=== PATIENT | male | born 1950 | race Caucasian/White ===

== ENCOUNTER → 2018-02-05 | Outpatient (CLI) | payer OTHER | END | disposition home or self-care (01) | LOC: CFH 15:34 | PROVIDERS: ATTEND Internal Medicine Cardiovascular Disease | DX: I34.0 Nonrheumatic mitral (valve) insufficiency (principal); I35.0 Nonrheumatic aortic (valve) stenosis; I34.8 Other nonrheumatic mitral valve disorders; I51.7 Cardiomegaly; E78.5 Hyperlipidemia, unspecified | CPT/HCPCS: 93306 ==

== ENCOUNTER → 2018-07-17 | Outpatient (CLI) | payer OTHER | END | disposition home or self-care (01) | LOC: CFH 11:20 | PROVIDERS: ATTEND Internal Medicine Cardiovascular Disease | DX: R60.9 Edema, unspecified (principal); I50.9 Heart failure, unspecified; R06.02 Shortness of breath | CPT/HCPCS: 71046 ==

== ENCOUNTER → 2018-08-05 | Outpatient (CLI) | payer OTHER ==
[~2018-08-05] MED LIST: ALBU90AE INH; ATOR20TA37 PO; CALC-112 PO; CHOL2000 PO; FLUT1DIS IH; MULT-658 PO
== END | disposition home or self-care (01) ==
LOC: CVU 09:58
PROVIDERS: ATTEND Internal Medicine Cardiovascular Disease
DX: I08.0 Rheumatic disorders of both mitral and aortic valves (principal); J45.909 Unspecified asthma, uncomplicated
CPT/HCPCS: 0399T; 93306

== ENCOUNTER → 2018-08-26 | Outpatient (CLI) | payer OTHER ==
[~2018-08-26] MED LIST changes: +BUME1TAB21 PO; +LEVO500T47 PO; +LOSA25TA25 PO; +METO25TA91 PO; +POTA20TA6 PO; +RIVA20TA PO
[2018-08-26 15:55] LABS: ANION GAP 7 mmol/L (5-15); CALCIUM 9.1 mg/dL (8.5-10.1); CHLORIDE 108 mmol/L (98-107); CREATININE 1.19 mg/dL (0.7-1.3)
== END | disposition home or self-care (01) ==
LOC: CFH 15:06
PROVIDERS: ATTEND Internal Medicine Cardiovascular Disease
DX: I35.0 Nonrheumatic aortic (valve) stenosis (principal); I50.43 Acute on chronic combined systolic (congestive) and diastolic (congestive) heart failure
CPT/HCPCS: 36415; 80048

== ENCOUNTER → 2018-09-03 | Outpatient (CLI) | payer OTHER ==
[~2018-09-03] MED LIST changes: +OMNIPAQUE 350 MG/ML, 100ML BOTTLE ONE
== END | disposition home or self-care (01) ==
LOC: RAD 08:56
PROVIDERS: ATTEND Internal Medicine Cardiovascular Disease
DX: K57.30 Diverticulosis of large intestine without perforation or abscess without bleeding (principal); K76.0 Fatty (change of) liver, not elsewhere classified; I65.21 Occlusion and stenosis of right carotid artery; I70.90 Unspecified atherosclerosis; E04.1 Nontoxic single thyroid nodule; J98.11 Atelectasis; E78.5 Hyperlipidemia, unspecified; I42.9 Cardiomyopathy, unspecified; I35.0 Nonrheumatic aortic (valve) stenosis
CPT/HCPCS: 71275; 74174; 93880; Q9967

== ENCOUNTER 2018-09-09 06:01 | Inpatient (IN) | payer OTHER ==
[~2018-09-09] VITALS: Ht 177.8 cm; Wt 107.1 kg
[~2018-09-09 06:01] MED LIST changes: -OMNIPAQUE 350 MG/ML, 100ML BOTTLE ONE
[2018-09-09] MEDS ORDERED: SODIUM CHLORIDE 0.9% 1,000 ML IV ONE (06:17)
[2018-09-09 06:23] VITALS: BP 102/66
[2018-09-09] MEDS ORDERED: CHLORHEXIDINE 15 ML UDC MM PRN (06:30)
[2018-09-09] MEDS ORDERED: ONDANSETRON 2MG/ML, 2ML IVPush PRN ×2 (06:30→09:00)
[2018-09-09] MEDS ORDERED: ATOR20TA PO (07:00)
[2018-09-09] MEDS ORDERED: FLUT1DIS IH (07:00)
[2018-09-09 07:03] LABS: BASOPHILS # (AUTO) 0.03 x10^3/uL (0-0.1); BASOPHILS % (AUTO) 1 % (0-1); EOSINOPHILS # (AUTO) 0.15 x10^3/uL (0-0.4); EOSINOPHILS % (AUTO) 3 % (1-7); LYMPHOCYTES % (AUTO) 29 % (22-44); MD NO; MEAN CORPUSCULAR HEMOGLOBIN 31.5 pg (27.5-34.5); MEAN CORPUSCULAR HGB CONC 33.4 g/dL (33.2-36.2); MEAN CORPUSCULAR VOLUME 94.6 fL (81-97); MEAN PLATELET VOLUME 8.5 fL (7.4-10.4); MONOCYTES # (AUTO) 0.78 x10^3/uL (0.2-0.8); MONOCYTES % (AUTO) 13 % (2-9); NEUTROPHILS # (AUTO) 3.16 x10^3/uL (1.8-6.8); NEUTROPHILS % (AUTO) 54 % (42-75); PLATELET COUNT 256 x10^3/uL (130-400); RED BLOOD COUNT 5.09 x10^6/uL (4.38-5.82); RED CELL DISTRIBUTION WIDTH 13.1 % (9.4-14.8)
[2018-09-09] MEDS ORDERED: PROTAMINE SULFATE 10 MG/ML, 5ML ONE (07:04)
[2018-09-09] MEDS ORDERED: FENTANYL PF 250 MCG/5ML ONE (07:14)
[2018-09-09 07:18] LABS: ALBUMIN 3.9 g/dL (3.4-5.0); ANION GAP 5 mmol/L (5-15); CALCIUM 9.3 mg/dL (8.5-10.1); CHLORIDE 108 mmol/L (98-107)
[2018-09-09 07:24] LABS: ALANINE AMINOTRANSFERASE 42 U/L (12-78); ALKALINE PHOSPHATASE 82 U/L (45-117); BILIRUBIN,TOTAL 0.6 mg/dL (0.2-1.0); CREATININE 1.17 mg/dL (0.7-1.3); TOTAL PROTEIN 7.7 g/dL (6.4-8.2)
[2018-09-09 07:37] LABS: INTERNATIONAL NORMALIZED RATIO 1.02 (0.93-1.1); PROTHROMBIN TIME 10.7 Seconds (9.6-11.5)
[2018-09-09] MEDS ORDERED: HYDROcodone/APAP 5/325 TABLET PO PRN (09:00)
[2018-09-09] MEDS ORDERED: hydrALAzine 20 MG/ML, 1ML IVPush PRN (09:00)
[2018-09-09] MEDS ORDERED: ACETAMINOPHEN 325 MG TABLET PO PRN (09:00)
[2018-09-09] MEDS ORDERED: LABETALOL 5 MG/ML SYRINGE IVPush PRN (09:00)
[2018-09-09] MEDS: CHOLECALCIFEROL 1,000 UNIT TABLET PO SCH (09:25)
[2018-09-09] MEDS: BUMETANIDE 1 MG TABLET PO SCH (09:26)
[2018-09-09] MEDS: LOSARTAN 25MG TABLET PO SCH (09:27)
[2018-09-09] MEDS: POTASSIUM CHLORIDE 20 MEQ TAB.ER.PRT PO SCH (09:27)
[2018-09-09] MEDS: MULTIVITAMIN 1 TABLET PO SCH (09:28)
[2018-09-09 15:19] VITALS: BP 112/70
[2018-09-09] MEDS ORDERED: PROPOFOL 10 MG/ML, 20ML ONE (15:38)
[2018-09-09] MEDS ORDERED: ROCURONIUM 10MG/ML,5ML ONE (15:38)
[2018-09-09] MEDS ORDERED: SUCCINYLCHOLINE 20 MG/ML, 10ML ONE (15:38)
[2018-09-09] MEDS ORDERED: ONDANSETRON 2MG/ML, 2ML ONE (15:38)
[2018-09-09] MEDS ORDERED: CEFAZOLIN 1,000 MG ONE (15:38)
[2018-09-09] MEDS ORDERED: RIVAROXABAN 20 MG TABLET PO SCH ×2 (17:00→21:00)
[2018-09-09 19:48] VITALS: BP 99/66
[2018-09-09 20:27] VITALS: BP 114/76
[2018-09-09] MEDS ORDERED: ATORVASTATIN 20 MG TABLET PO SCH (21:00)
[2018-09-09] MEDS ORDERED: METOPROLOL SUCCINATE 25 MG TAB.ER.24H PO SCH (21:00)
[2018-09-10 02:42] VITALS: BP 135/78
[2018-09-10 05:08] LABS: BASOPHILS # (AUTO) 0.03 x10^3/uL (0-0.1); BASOPHILS % (AUTO) 0 % (0-1); EOSINOPHILS # (AUTO) 0.05 x10^3/uL (0-0.4); EOSINOPHILS % (AUTO) 1 % (1-7); LYMPHOCYTES # (AUTO) 1.21 x10^3/uL (1-3.4); LYMPHOCYTES % (AUTO) 15 % (22-44); MD NO; MEAN CORPUSCULAR HGB CONC 34.4 g/dL (33.2-36.2); MEAN PLATELET VOLUME 8.5 fL (7.4-10.4); MONOCYTES # (AUTO) 1.09 x10^3/uL (0.2-0.8); MONOCYTES % (AUTO) 14 % (2-9); NEUTROPHILS # (AUTO) 5.51 x10^3/uL (1.8-6.8); NEUTROPHILS % (AUTO) 70 % (42-75); PLATELET COUNT 182 x10^3/uL (130-400); RED BLOOD COUNT 4.05 x10^6/uL (4.38-5.82); RED CELL DISTRIBUTION WIDTH 13.2 % (9.4-14.8)
[2018-09-10 05:13] LABS: ANION GAP 6 mmol/L (5-15); CALCIUM 8.6 mg/dL (8.5-10.1); CHLORIDE 109 mmol/L (98-107)
[2018-09-10 05:14] LABS: CREATININE 0.87 mg/dL (0.7-1.3)
[2018-09-10 07:31] VITALS: BP 124/83
[2018-09-10] MEDS ORDERED: ASPIRIN 81 MG TABLET EC PO SCH (09:00)
[2018-09-10 09:54] VITALS: BP 125/80
[2018-09-10] MEDS: POTASSIUM CHLORIDE 20 MEQ TAB.ER.PRT PO SCH (09:55)
[2018-09-10] MEDS: MULTIVITAMIN 1 TABLET PO SCH (09:55)
[2018-09-10] MEDS: LOSARTAN 25MG TABLET PO SCH (09:55)
[2018-09-10] MEDS: BUMETANIDE 1 MG TABLET PO SCH (09:56)
[2018-09-10] MEDS: CHOLECALCIFEROL 1,000 UNIT TABLET PO SCH (09:59)
[2018-09-10] MEDS ORDERED: ACET325T14 PO (10:40)
[2018-09-10] MEDS ORDERED: ASPI81TA45 PO (10:40)
== END 2018-09-10 12:30 | disposition home or self-care (01) | DRG 266 ==
LOC: ORIP 06:01 → CCU 08:44 → 5SO 15:14 → DCLOUNGE 09-10 11:40
PROVIDERS: ADMIT Internal Medicine Cardiovascular Disease; ATTEND Internal Medicine Cardiovascular Disease
PROC: 03HY32Z Insertion of Monitoring Device into Upper Artery, Percutaneous Approach (ICD-10-PCS; 2018-09-09)
PROC: 02RF38Z Replacement of Aortic Valve with Zooplastic Tissue, Percutaneous Approach (ICD-10-PCS; principal; 2018-09-09 10:00)
DX: I35.0 Nonrheumatic aortic (valve) stenosis (principal); I50.43 Acute on chronic combined systolic (congestive) and diastolic (congestive) heart failure; I42.9 Cardiomyopathy, unspecified; I25.10 Atherosclerotic heart disease of native coronary artery without angina pectoris; I48.91 Unspecified atrial fibrillation; J44.9 Chronic obstructive pulmonary disease, unspecified; Z79.01 Long term (current) use of anticoagulants
CPT/HCPCS: 0399T; 33361; 36415; 80048; 80053; 83880; 85025; 85347; 85610; 85730; 86850; 86900; 86923; 87081; 93005; 93306; 93312; 93321; 93325; 93355; C1760; C1769; C1894; G0378; J0690; J2405; J2704; J2720; J3010; J0330; J7030; Q9967

== ENCOUNTER 2018-09-15 08:07 | Emergency (ER) | payer OTHER ==
[~2018-09-15] VITALS: Ht 177.8 cm; Wt 108.6 kg
[~2018-09-15 08:07] MED LIST changes: +ACET325T14 PO; +ASPI81TA45 PO; +ATOR20TA PO
--- NOTE | 2018-09-15 09:24 | NUR ---
ASSUMED CARE. RECEIVED REPORT FROM EDIL. ULTRASOUND AT BEDSIDE
[2018-09-15 10:18] VITALS: BP 150/83
== END 2018-09-15 10:45 | disposition home or self-care (01) ==
LOC: ED 08:45
DX: M79.652 Pain in left thigh (principal); M79.662 Pain in left lower leg; I50.9 Heart failure, unspecified; E78.5 Hyperlipidemia, unspecified; J45.909 Unspecified asthma, uncomplicated
CPT/HCPCS: 99284

== ENCOUNTER 2019-05-07 14:58 | Inpatient (IN) | payer OTHER ==
[~2019-05-07] VITALS: Ht 177.8 cm; Wt 117.4 kg
--- NOTE | 2019-05-07 15:04 | NUR ---
EKG performed in triage.
[2019-05-07] MEDS ORDERED: DILTIAZEM 5 MG/ML, 5ML IVPush ONE (15:30)
--- NOTE | 2019-05-07 15:38 | NUR ---
PT HERE TODAY AFTER BEING CALLED BY DR. GLOVER'S OFFICE- WAS CALLED FOR ABNORMAL HEARTRATE. IN ER IS IN A FLUTTER @ 134-140 BPM. MD AT BEDSIDE ASSESSING PT. PT DENIES SOB. STATES HE HAS BEEN DIZZY TODAY. RESTING ON GURNEY. OTHERWISE VSS. NADN. DENIES NEEDS. DAUGHTER AT BEDSIDE. AWARE OF POC.
[2019-05-07 15:46] LABS: BASOPHILS # (AUTO) 0.06 x10^3/uL (0-0.1); BASOPHILS % (AUTO) 1 % (0-1); EOSINOPHILS # (AUTO) 0.23 x10^3/uL (0-0.4); EOSINOPHILS % (AUTO) 2 % (1-7); LYMPHOCYTES # (AUTO) 2.22 x10^3/uL (1-3.4); LYMPHOCYTES % (AUTO) 21 % (22-44); MD NO; MEAN CORPUSCULAR HEMOGLOBIN 33.3 pg (27.5-34.5); MEAN CORPUSCULAR HGB CONC 33.6 g/dL (33.2-36.2); MEAN CORPUSCULAR VOLUME 99.1 fL (81-97); MEAN PLATELET VOLUME 7.6 fL (7.4-10.4); MONOCYTES # (AUTO) 1.18 x10^3/uL (0.2-0.8); MONOCYTES % (AUTO) 11 % (2-9); NEUTROPHILS # (AUTO) 6.86 x10^3/uL (1.8-6.8); NEUTROPHILS % (AUTO) 65 % (42-75); PLATELET COUNT 227 x10^3/uL (130-400); RED BLOOD COUNT 4.88 x10^6/uL (4.38-5.82); RED CELL DISTRIBUTION WIDTH 13.2 % (9.4-14.8)
[2019-05-07] MEDS ORDERED: METOPROLOL 1 MG/ML, 5ML ONE (15:51)
--- NOTE | 2019-05-07 15:55 | NUR ---
PT MEDICATED PER EMAR.
[2019-05-07 15:57] LABS: INTERNATIONAL NORMALIZED RATIO 1.04 (0.93-1.1); PROTHROMBIN TIME 10.9 Seconds (9.6-11.5)
[2019-05-07 15:59] LABS: ALBUMIN 3.7 g/dL (3.4-5.0); ANION GAP 10 mmol/L (5-15); CALCIUM 8.5 mg/dL (8.5-10.1); CHLORIDE 112 mmol/L (98-107)
[2019-05-07] MEDS ORDERED: METOPROLOL 1 MG/ML, 5ML IVPush ONE ×2 (16:00→16:30)
[2019-05-07 16:03] LABS: ALANINE AMINOTRANSFERASE 31 U/L (12-78); ALKALINE PHOSPHATASE 106 U/L (45-117); BILIRUBIN,TOTAL 0.2 mg/dL (0.2-1.0); CREATININE 0.95 mg/dL (0.7-1.3); TOTAL PROTEIN 7.3 g/dL (6.4-8.2)
[2019-05-07] MEDS ORDERED: CYCLOBENZAPRINE 10 MG TABLET PO PRN (17:00)
[2019-05-07] MEDS ORDERED: ONDANSETRON 2MG/ML, 2ML IVPush PRN (17:00)
[2019-05-07] MEDS ORDERED: ACETAMINOPHEN 325 MG TABLET PO PRN (17:00)
[2019-05-07] MEDS ORDERED: TRAZODONE 50MG TABLET PO PRN (17:00)
[2019-05-07] MEDS ORDERED: ONDANSETRON ODT 4 MG PO PRN (17:00)
[2019-05-07] MEDS ORDERED: hydrALAzine 20 MG/ML, 1ML IVPush PRN (17:00)
--- NOTE | 2019-05-07 17:32 | NUR ---
REPORT GIVEN TO TOBIAS MARSH.
[2019-05-07 17:59] VITALS: BP 127/86
[2019-05-07] MEDS ORDERED: HEPARIN 25,000 UNITS/500ML PMX 500 ML IV PRN (19:00)
[2019-05-07] MEDS ORDERED: HEPARIN 5,000 UNITS/ML, 1ML IV ONE (19:00)
[2019-05-07] MEDS ORDERED: HEPARIN 5,000 UNITS/ML, 1ML IV PRN (19:00)
[2019-05-07 19:41] VITALS: BP 124/84
[2019-05-07] MEDS: METOPROLOL TARTRATE 50 MG TABLET PO SCH (20:06)
[2019-05-08 01:15] VITALS: BP 122/90
[2019-05-08 05:15] LABS: ANION GAP 5 mmol/L (5-15); CHLORIDE 110 mmol/L (98-107); CREATININE 0.96 mg/dL (0.7-1.3)
[2019-05-08 05:25] LABS: BASOPHILS # (AUTO) 0.05 x10^3/uL (0-0.1); BASOPHILS % (AUTO) 1 % (0-1); EOSINOPHILS # (AUTO) 0.27 x10^3/uL (0-0.4); EOSINOPHILS % (AUTO) 3 % (1-7); LYMPHOCYTES # (AUTO) 2.19 x10^3/uL (1-3.4); LYMPHOCYTES % (AUTO) 26 % (22-44); MD NO; MEAN CORPUSCULAR HEMOGLOBIN 33.4 pg (27.5-34.5); MEAN CORPUSCULAR HGB CONC 33.3 g/dL (33.2-36.2); MEAN CORPUSCULAR VOLUME 100.2 fL (81-97); MEAN PLATELET VOLUME 8.4 fL (7.4-10.4); MONOCYTES # (AUTO) 0.94 x10^3/uL (0.2-0.8); MONOCYTES % (AUTO) 11 % (2-9); NEUTROPHILS # (AUTO) 4.88 x10^3/uL (1.8-6.8); NEUTROPHILS % (AUTO) 59 % (42-75); PLATELET COUNT 203 x10^3/uL (130-400); RED BLOOD COUNT 4.99 x10^6/uL (4.38-5.82); RED CELL DISTRIBUTION WIDTH 12.9 % (9.4-14.8)
[2019-05-08 07:00] VITALS: BP 135/99
[2019-05-08] MEDS: METOPROLOL TARTRATE 50 MG TABLET PO SCH (07:51)
[2019-05-08] MEDS ORDERED: PROPOFOL 10 MG/ML, 20ML ONE (09:16)
[2019-05-08] MEDS ORDERED: RIVAROXABAN 20 MG TABLET PO SCH (12:00)
[2019-05-08 13:02] VITALS: BP 132/88
[2019-05-08] MEDS ORDERED: METO50TA82 PO (15:03)
== END 2019-05-08 16:37 | disposition home or self-care (01) | DRG 309 ==
LOC: CACL 16:15 → EDIP 16:18 → 5SO 17:43 → DCLOUNGE 05-08 16:26
PROVIDERS: ADMIT Family Medicine; ATTEND Family Medicine
PROC: 5A2204Z Restoration of Cardiac Rhythm, Single (ICD-10-PCS; principal; 2019-05-08 08:30)
DX: I48.92 Unspecified atrial flutter (principal); D68.69 Other thrombophilia; E87.2 Acidosis; E66.9 Obesity, unspecified; I48.91 Unspecified atrial fibrillation; Z91.048 Other nonmedicinal substance allergy status; E78.5 Hyperlipidemia, unspecified; I25.10 Atherosclerotic heart disease of native coronary artery without angina pectoris; I35.0 Nonrheumatic aortic (valve) stenosis; I50.9 Heart failure, unspecified; J44.9 Chronic obstructive pulmonary disease, unspecified; Z79.01 Long term (current) use of anticoagulants; Z85.830 Personal history of malignant neoplasm of bone; Z87.891 Personal history of nicotine dependence; Z92.21 Personal history of antineoplastic chemotherapy; Z92.3 Personal history of irradiation; Z95.2 Presence of prosthetic heart valve; Z68.37 Body mass index [BMI] 37.0-37.9, adult
CPT/HCPCS: 36415; 80048; 80053; 83735; 84443; 85025; 85520; 85610; 85730; 92960; 93005; 93312; 93321; 93325; G0378; J1644; J2704

== ENCOUNTER → 2019-09-17 | Outpatient (CLI) | payer OTHER ==
[~2019-09-17] MED LIST changes: +METO50TA82 PO
== END | disposition home or self-care (01) ==
LOC: CVU 08:34
PROVIDERS: ATTEND Internal Medicine Cardiovascular Disease
DX: I34.0 Nonrheumatic mitral (valve) insufficiency (principal); I35.0 Nonrheumatic aortic (valve) stenosis; I65.29 Occlusion and stenosis of unspecified carotid artery
CPT/HCPCS: 93306